=== PATIENT | male | born 1970 | race Caucasian/White ===

== ENCOUNTER 2024-08-26 23:00 | Emergency (ER) | payer SELFPAY ==
[2024-08-26 23:14] VITALS: BP 170/94; PULSE 125; RESP 20; TEMP 37.1; O2SAT 97; BMI 29.8
--- NOTE | 2024-08-26 23:20 | EKG_ITS ---
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
--- NOTE | 2024-08-26 23:20 | DI.RAD.S_ITS ---
PROCEDURE: XR CHEST 1V INDICATIONS: Shortness of breath TECHNIQUE: One view of the chest was acquired. COMPARISON: None. FINDINGS: Surgical changes and devices: None. Lungs and pleura: Lungs are clear. No pleural effusions or pneumothorax. Mediastinum: Mediastinal contours appear normal. Heart size is normal. Bones and chest wall: No suspicious bony lesions. Overlying soft tissues appear unremarkable. IMPRESSION: No acute cardiopulmonary abnormality is seen. Dictated by: Kevin Del Valle M.D. on 08/27/2024 at 0:01 Approved by: Kevin Del Valle M.D. on 08/27/2024 at 0:02
[2024-08-26] MEDS: ALBUTEROL 2.5 MG/3 ML NEB (ADULT) INH (23:28)
[2024-08-26 23:46] LABS: Add Manual Diff / Slide Review NO; Basophils Absolute Auto 100 /uL (0-100); Basophils Percent Auto 0.7 % (0-2); Eosinophils Absolute Auto 300 /uL (0-450); Eosinophils Percent Auto 3.3 % (2-4); Hematocrit 44.6 % (41-53); Hemoglobin 15.2 g/dL (13.5-17.5); Lymphocytes Absolute Auto 800 /uL (1100-4500); Lymphocytes Percent Auto 10.7 % (25-40); Mean Corpuscular Hemoglobin 28.4 PG (26-34); Mean Corpuscular Volume 83.6 fL (80-100); Monocytes Absolute Auto 500 /uL (0-900); Monocytes Percent Auto 6.8 % (3-14); Neutrophils Absolute Auto 6000 /uL (1500-7000); Neutrophils Percent Auto 78.5 % (50-75); Platelet Count 216 X10^3/uL (150-400); Red Blood Cell Count 5.33 X10^6/uL (4.5-5.9); Red Cell Distribution Width 14.3 % (11.6-14.8); White Blood Cell Count 7.6 X10^3/uL (4.5-11.0)
[2024-08-26 23:54] LABS: Prothrombin Time 11.7 SECONDS (9.4-12.5)
[2024-08-26 23:59] LABS: Alanine Aminotransferase 42 IU/L (<50); Albumin 4.7 g/dL (3.5-5.0); Albumin Globulin Ratio 1.6 (1.0-2.8); Alkaline Phosphatase 89 U/L (38-126); Aspartate Aminotransferase 30 IU/L (17-59); BUN Creatinine Ratio 11.9 (6-22); Blood Urea Nitrogen 17 mg/dL (9-20); Carbon Dioxide 30 mmol/L (22-32); Chloride 102 mmol/L (98-107); Estimated Glomerular Filt Rate 58 mL/min (>60); Glucose 116 mg/dL (70-99); HEMOLYSIS 20 (0-50); Potassium 4.2 mmol/L (3.4-5.1); Sodium 140 mmol/L (137-145); Total Protein 7.7 g/dL (6.3-8.2)
[2024-08-27] LABS: Lactate (Lactic Acid) 0.8 mmol/L (0.7-2.1)
[2024-08-27 00:11] LABS: NT-proBNP (BNP-Adult 18+) 75 pg/mL (<125); Troponin I < 0.012 ng/mL (0.01-0.034)
[2024-08-27 00:43] LABS: Influenza A - CEPHEID Flu A NEGATIVE (NEGATIVE); Influenza B - CEPHEID Flu B NEGATIVE (NEGATIVE); Respiratory Syncytial Virus Negative (Negative)
[2024-08-27 00:44] LABS: COVID-19 CEPHEID 4-PLEX PCR Negative (Negative)
[2024-08-27 04:43] VITALS: BP 162/101; PULSE 106; O2SAT 97
[2024-08-27 05:00] VITALS: BP 147/92; PULSE 98; RESP 18; O2SAT 96
--- NOTE | 2024-08-27 05:13 | ED_ITS ---
HPI - SOB/Dyspnea General Chief Complaint: Shortness of Breath/Dyspnea Stated Complaint: SOB Time Seen by Provider: 08/27/24 04:48 Source: patient Mode of arrival: Ambulatory Limitations: no limitations History of Present Illness HPI Narrative: 53-year-old male with cough and increasing shortness of breath since yesterday. Denies chest pain. No leg pain or swelling. No known historyof asthma or heart disease or heart failure or blood clots. Some feverishness. No nausea or vomiting, no diarrhea, no abdominal pain. Related Data Previous Rx's Medication Instructions Recorded prednisone 20 mg tablet 40 mg (2 x 20 mg) PO DAILY 5 days 08/27/24 #10 tabs Allergies Allergy/AdvReac Type Severity Reaction Status Date / Time Penicillins Allergy Rash Verified 08/26/24 23:14 Patient History Social History Smoking Status: Former smoker Smoking Status: Former smoker Exam Narrative Exam Narrative: GENERAL: Well-developed patient, in mild distress. HEAD: Atraumatic. Normocephalic. EYES: Pupils equal round and reactive. Extraocular motions intact. No scleral icterus. No injection or drainage. ENT: Nose without bleeding, purulent drainage. Throat without erythema, tonsillar hypertrophy or exudate. Airway patent. NECK: Trachea midline. Non tender CARDIOVASCULAR: Fast rate and regular rhythm without murmurs, gallops, or rubs. RESPIRATORY: Wheeze bilateral, no retractions, speaks in full sentences. GASTROINTESTINAL: Abdomen soft, non-tender, nondistended. EXTREMITIES: No edema or joint tenderness. BACK: Nontender without deformity or crepitance. No flank tenderness. NEURO: AOx3. Motor functions grossly nonfocal SKIN: No rash or erythema of visible areas Initial Vital Signs Initial Vital Signs: Vital Signs Temperature 98.7 F 08/26/24 23:14 Pulse Rate 125 H 08/26/24 23:14 Respiratory Rate 20 08/26/24 23:14 Blood Pressure 170/94 H 08/26/24 23:14 Pulse Oximetry 97 08/26/24 23:14 Oxygen Delivery Method Room Air 08/26/24 23:14 Course Orders Ordered: Discontinued Medications Albuterol (Albuterol 2.5 Mg/3 Ml Neb (Adult)) 2.5 mg INH NOW ONE Stop: 08/26/24 23:23 Last Admin: 08/26/24 23:28 Dose: 2.5 mg Documented By: MR Albuterol (Albuterol 2.5 Mg/3 Ml Neb (Adult)) 2.5 mg INH NOW ONE Stop: 08/27/24 05:16 Last Admin: 08/27/24 05:34 Dose: 2.5 mg Documented By: Albuterol (Albuterol Hfa Prepack) 1 box MISC DIRECTED ONE Stop: 08/27/24 05:21 Last Admin: 08/27/24 05:26 Dose: 1 box Documented By: Methylprednisolone (Methylprednisolone 125 Mg/2 Ml Vial) 125 mg IV NOW ONE Stop: 08/27/24 05:19 Last Admin: 08/27/24 05:41 Dose: 125 mg Documented By: CAROL Vital Signs Vital signs: Vital Signs - 8 hr 08/26/24 23:14 08/27/24 04:43 08/27/24 04:43 Temperature 98.7 F Pulse Rate 125 H 106 H Respiratory Rate 20 Blood Pressure 170/94 H 162/101 H Pulse Oximetry 97 97 Oxygen Delivery Method Room Air 08/27/24 05:00 08/27/24 05:00 Temperature Pulse Rate 98 H Respiratory Rate 18 Blood Pressure 147/92 H Pulse Oximetry 96 Oxygen Delivery Method MDM - SOB/Dyspnea Lab Data Attestation: I reviewed the patient's lab results. Lab results narrative: WBC normal, normal Hb, BMP normal, Troponin negative x2 interval sets. BNP not elevated. Covid Flu RSV negative. 08/26/24 23:30 08/26/24 23:30 Labs: Lab Results 08/26/24 08/27/24 Range/Units 23:30 05:50 WBC 7.6 (4.5-11.0) X10^3/uL RBC 5.33 (4.5-5.9) X10^6/uL Hgb 15.2 (13.5-17.5) g/dL Hct 44.6 (41-53) % MCV 83.6 (80-100) fL MCH 28.4 (26-34) PG MCHC 34.0 (30-36) % RDW 14.3 (11.6-14.8) % Plt Count 216 (150-400) X10^3/uL Neut % (Auto) 78.5 H (50-75) % Lymph % (Auto) 10.7 L (25-40) % [place] % (Auto) 6.8 (3-14) % Eos % (Auto) 3.3 (2-4) % Baso % (Auto) 0.7 (0-2) % Neut # (Auto) 6000 (9488-8214) /uL Lymph # (Auto) 800 L (7654-6200) /uL [place] # (Auto) 500 (0-900) /uL Eos # (Auto) 300 (0-450) /uL Baso # (Auto) 100 (0-100) /uL PT 11.7 (9.4-12.5) SECONDS INR 1.0 (0.9-1.3) Sodium 140 (137-145) mmol/L Potassium 4.2 (3.4-5.1) mmol/L Chloride 102 (98-107) mmol/L Carbon Dioxide 30 (22-32) mmol/L BUN 17 (9-20) mg/dL Creatinine 1.43 H (0.66-1.25) mg/dL Estimated GFR 58 L (>60) mL/min BUN/Creatinine Ratio 11.9 (6-22) Glucose 116 H (70-99) mg/dL Lactate 0.8 (0.7-2.1) mmol/L Calcium 9.0 (8.4-10.2) mg/dL Total Bilirubin 1.0 (0.2-1.3) mg/dL AST 30 (17-59) IU/L ALT 42 (<50) IU/L Alkaline Phosphatase 89 (38-126) U/L Troponin I < 0.012 < 0.012 (0.01-0.034) ng/mL NT-Pro-B Natriuret Pep 75 (<125) pg/mL Total Protein 7.7 (6.3-8.2) g/dL Albumin 4.7 (3.5-5.0) g/dL Globulin 3.0 (1.7-4.1) g/dL Albumin/Globulin Ratio 1.6 (1.0-2.8) SARS-CoV-2 (PCR) Negative (Negative) Influenza A (RT-PCR) Flu a negative (NEGATIVE) Influenza B (RT-PCR) Flu b negative (NEGATIVE) RSV (PCR) Negative (Negative) Imaging Data Chest x-ray: Radiologist's Impression: [address] [address] XRay Report Signed Patient: Danilo Morin MR#: [id number] : 1970 Acct:[id number] Age/Sex: 53 / M Date of Service: 08/26/24 Loc: ED Accession Number: [id number] Procedure: XR chest 1V Ordering Provider: Aravind Boateng MD PROCEDURE: XR CHEST 1V INDICATIONS: Shortness of breath TECHNIQUE: One view of the chest was acquired. COMPARISON: None. FINDINGS: Surgical changes and devices: None. Lungs and pleura: Lungs are clear. No pleural effusions or pneumothorax. Mediastinum: Mediastinal contours appear normal. Heart size is normal. Bones and chest wall: No suspicious bony lesions. Overlying soft tissues appear unremarkable. IMPRESSION: No acute cardiopulmonary abnormality is seen. Dictated by: Kevin Del Valle M.D. on 08/27/2024 at 0:01 Approved by: Kevin Del Valle M.D. on 08/27/2024 at 0:02 MDM Narrative Medical decision making narrative: 53yo M with cough and incrasing dyspnea, wheezing on exam but no respiratory distress or oxygen requirement, normotensive, nebulized Albuterol given helped, repeat dosed, Albuterol iinhaler with spacer dispense. IV solumedrol, further improved. CXR negative, see radiology report. CBC, BMP, troponins, BNP, Covd Flu RSV normal or negative. Patient improved, DC oon inhaler with Rx for Prednisone pulse. Return precautions discussed. Discharge Plan Departure Patient Disposition: Home Clinical Impression: Upper respiratory infection, Wheezing Activity Restrictions/Additional Instructions: Recent cough and increasing shortness of breath. Wheezing on examination. Chest x-ray without obvious pneumonia changes. IV steroid given to help clear the wheezing. Breathing treatment of nebulized albuterol given. Albuterol inhaler with spacer also given, suggesting you try taking 2 puffs with spacer 4 times daily for the next week or so and then as needed. Oral steroids prednisone prescription daily for 5 day course sent to your pharmacy. Consider recheck of your lung exam with your regular doctor in the next few days. Return to this/nearest emergency department for any change worsening symptoms or any concerns prior. Prescriptions: New prednisone 20 mg tablet 40 mg PO DAILY 5 Days Qty: 10 0RF Stand Alone Forms: Patient Portal/API/Survey
[2024-08-27] MEDS: ALBUTEROL HFA PREPACK 1 BOX MISC (05:26)
[2024-08-27 05:30] VITALS: BP 134/95; PULSE 100; RESP 18; O2SAT 95
[2024-08-27] MEDS: ALBUTEROL 2.5 MG/3 ML NEB (ADULT) INH (05:34)
[2024-08-27] MEDS: methylPREDNISolone 125 MG/2 ML VIAL IV (05:41)
[2024-08-27 06:00] VITALS: BP 145/97; PULSE 105; RESP 19; O2SAT 95
[2024-08-27 06:21] LABS: Troponin I < 0.012 ng/mL (0.01-0.034)
[2024-08-27 06:30] VITALS: PULSE 104; O2SAT 95
== END 2024-08-27 06:39 | disposition home or self-care (01) ==
PROVIDERS: Emergency Provider Emergency Medicine
DX: J06.9 Acute upper respiratory infection, unspecified (principal); R06.2 Wheezing; Z87.891 Personal history of nicotine dependence
CPT/HCPCS: 0241U; 71045; 80053; 83605; 83880; 84484; 85025; 85610; 93005; 94640; 96374; 99284; J2919; J7613